=== PATIENT | male | born 1985 | race Caucasian/White ===

== ENCOUNTER 2019-07-22 15:34 | Inpatient (IN) | payer OTHER ==
[~2019-07-22] VITALS: Ht 182.9 cm; Wt 79.0 kg
--- NOTE | 2019-07-22 16:03 | NUR ---
PATIENT MEETS [facility]. CINA=18. PATIENT WANTS TO FOLLOW UP WITH [facility] FOR OUTPATIENT TREATMENT. ROZ BROTHERS B.A. COUNTERSINKER
[2019-07-22 16:15] VITALS: BP 137/90
--- NOTE | 2019-07-22 16:15 | NUR ---
A 33, admitted to 5E, under the services of IGNACIO Gómez DO with a diagnosis of OPIATE WITHDRAWL. Chief complaint is NEED OF DETOX. Patient arrived via from [place]. Monitor applied. Initial assessment completed. Vital signs taken and recorded. IGNACIO GÓMEZ DO notified of admission to the unit. Orders received. See assessment for past medical history, medications and allergies. Patient and/or family oriented to unit. [address] visitation policy reviewed. Clothing/patient valuable form completed. CARISSA RIBEIRO
[2019-07-22 16:40] LABS: BASO # 0.1 10*3/uL (0.0-0.1); BASO % 0.4 % (0.0-1.0); EOS # 0.2 10*3/uL (0.0-0.4); EOS % 1.5 % (1.0-4.0); HEMATOCRIT 45.4 % (42.0-52.0); HEMOGLOBIN 14.8 g/dl (14.0-18.0); LYMPH # 2.4 10*3/uL (1.3-4.4); LYMPH % 17.5 % (27.0-41.0); MEAN CELL VOLUME 88.8 fl (80.0-94.0); MEAN CORPUSCULAR HGB CONC 32.6 g/dl (33.0-37.0); MEAN PLATELET VOLUME 10.2 fl (9.6-12.3); MONO # 1.1 10*3/uL (0.1-1.0); MONO % 8.2 % (3.0-9.0); NEUT # 9.9 10*3/uL (2.3-7.9); NEUT % 72.2 % (47.0-73.0); PLATELET COUNT AUTOMATED 272 10*3/uL (130-400); RED BLOOD COUNT 5.11 10*6/uL (4.50-5.90); WHITE BLOOD COUNT 13.8 10*3/uL (4.8-10.8)
[2019-07-22 16:56] LABS: ALBUMIN 4.5 gm/dl (3.1-4.5); ALKALINE PHOSPHATASE 128 U/L (45-117); BUN 13 mg/dl (7-24); CHLORIDE 105 mmol/L (98-107); CREATININE 1.06 mg/dL (0.70-1.30); POTASSIUM 3.5 mmol/L (3.5-5.1); SGOT/AST 7 IU/L (3-35); SGPT/ALT 21 U/L (12-78); SODIUM 140 mmol/L (136-145); TOTAL PROTEIN 8.3 gm/dL (6.4-8.2)
[2019-07-22 16:58] LABS: ETHYL ALCOHOL < 3.0 mg/dl (<3)
--- NOTE | 2019-07-22 19:23 | NUR ---
MEDICATED WITH PO VISTARIL, REQUIP, MOTRIN AND ROBAXIN FOR C/O ANXIETY, RESTLESS LEGS, ACHES AND CRAMPING.
[2019-07-22 20:00] VITALS: BP 135/82
[2019-07-22 20:44] LABS: BILIRUBIN NEGATIVE (NEGATIVE); BLOOD NEGATIVE (NEGATIVE); CLARITY CLEAR (CLEAR); COLOR YELLOW (YELLOW); GLUCOSE NEGATIVE (NEGATIVE); KETONE TRACE (NEGATIVE); LEUKO ESTERASE NEGATIVE (NEGATIVE); NITRITE NEGATIVE (NEGATIVE); PH 6.5 (5.0-9.0)
[2019-07-22 20:53] LABS: URINE AMPHETAMINES < 1000 (1000ng/ml); URINE BARBITURATES < 200 (200ng/ml); URINE BENZODIAZEPINES > 200 (200ng/ml); URINE CANNABINOIDS (THC) < 50 (50ng/ml); URINE COCAINE < 300 (300ng/ml); URINE METHADONE < 300 (300ng/ml); URINE OPIATES < 300 (300ng/ml)
[2019-07-22 20:55] LABS: URINE PHENCYCLIDINE < 25 (25ng/ml)
[2019-07-22 21:01] LABS: BACTERIA TRACE; EPITHELIAL CELLS 0-2; WBC 0-2 wbc/hpf (0-5)
--- NOTE | 2019-07-22 21:31 | NUR ---
PATIENT MEDICATED WITH TRAZADONE. WILL CHECK EFFECTIVENESS. WILL CONTINUE TO MONITOR.
[2019-07-23] VITALS: BP 128/74
[2019-07-23 08:00] VITALS: BP 131/86
--- NOTE | 2019-07-23 08:47 | NUR ---
PT MEDICATED WITH PO VISTARIL & ROBAXIN PER PRN ORDER FOR COMPLAINTS OF AGITATION AND MUSCLE CRAMPING IN LEGS. WILL MONITOR FOR EFFECTIVENES.
--- NOTE | 2019-07-23 10:00 | NUR ---
PER PATIENT, PRN MEDICATION HAS BEEN EFFECTIVE. NO FURTHER COMPLAINTS AT THIS TIME.
[2019-07-23 12:00] VITALS: BP 153/76
[2019-07-23 16:00] VITALS: BP 112/69
--- NOTE | 2019-07-23 16:45 | NUR ---
PT MEDICATED WITH VISTARIL & ROBAXIN AT THIS TIME FOR COMPLAINTS OF AGITATION & MUSCLE ACHES IN LEGS. WILL MONITOR FOR EFFECTIVENESS.
--- NOTE | 2019-07-23 17:56 | NUR ---
PT MUCH MORE RELAXED AT THIS TIME, DENIES NEEDS.
[2019-07-23 20:00] VITALS: BP 124/83
--- NOTE | 2019-07-23 23:28 | NUR ---
PATIENT MEDICATED WITH TRAZODONE FOR C/O INSOMNIA. WILL MONITOR
--- NOTE | 2019-07-23 23:31 | NUR ---
PATIENT MEDICATED WITH VISTARIL FOR C/O ANXIETY. WILL MONITOR
[2019-07-24] VITALS: BP 132/81
--- NOTE | 2019-07-24 00:28 | NUR ---
TRAZODONE AND VISTARIL EFFECITVE
[2019-07-24 08:00] VITALS: BP 119/70
--- NOTE | 2019-07-24 10:10 | NUR ---
PATIENT LEAVING AGAINST MEDICAL ADVICE AT THIS TIME DUE TO [employer]ER ISSUES. PT IS GOING TO [facility] TOMORROW PLANNED. NOTIFIED & SHIFT DIRECTOR ESTEBAN. AMBULATORY OFF FLOOR.
== END 2019-07-24 10:10 | disposition left against medical advice (07) | DRG 894 ==
LOC: 5E 15:34
PROVIDERS: Student in an Organized Health Care Education/Training Program; ADMIT Internal Medicine
DX: F11.23 Opioid dependence with withdrawal (principal); R65.10 Systemic inflammatory response syndrome (SIRS) of non-infectious origin without acute organ dysfunction; F41.9 Anxiety disorder, unspecified; F17.210 Nicotine dependence, cigarettes, uncomplicated; D72.829 Elevated white blood cell count, unspecified; I10 Essential (primary) hypertension; Z53.29 Procedure and treatment not carried out because of patient's decision for other reasons; Z71.6 Tobacco abuse counseling; Z82.3 Family history of stroke

== ENCOUNTER 2020-02-13 14:24 | Inpatient (IN) | payer OTHER ==
[~2020-02-13] VITALS: Ht 182.9 cm; Wt 82.1 kg
[2020-02-13 15:20] VITALS: BP 122/73
[2020-02-13 15:46] LABS: BASO % 0.4 % (0.0-1.0); EOS # 0.4 10*3/uL (0.0-0.4); EOS % 3.9 % (1.0-4.0); HEMATOCRIT 43.2 % (42.0-52.0); LYMPH # 2.5 10*3/uL (1.3-4.4); LYMPH % 27.8 % (27.0-41.0); MEAN CELL VOLUME 86.7 fl (80.0-94.0); MEAN CORPUSCULAR HGB 28.7 pg (27.0-31.0); MEAN CORPUSCULAR HGB CONC 33.1 g/dl (33.0-37.0); MEAN PLATELET VOLUME 10.1 fl (9.6-12.3); MONO # 0.9 10*3/uL (0.1-1.0); MONO % 9.6 % (3.0-9.0); NEUT # 5.2 10*3/uL (2.3-7.9); NEUT % 58.1 % (47.0-73.0); PLATELET COUNT AUTOMATED 216 10*3/uL (130-400); RED BLOOD COUNT 4.98 10*6/uL (4.50-5.90); RED CELL DISTRI WIDTH 13.2 % (0-14.5); WHITE BLOOD COUNT 8.9 10*3/uL (4.8-10.8)
[2020-02-13 16:08] LABS: ALKALINE PHOSPHATASE 121 U/L (45-117); BUN 8 mg/dl (7-24); CHLORIDE 102 mmol/L (98-107); POTASSIUM 3.5 mmol/L (3.5-5.1); SGOT/AST 26 IU/L (3-35); SGPT/ALT 49 U/L (12-78); SODIUM 136 mmol/L (136-145); TOTAL PROTEIN 7.6 gm/dL (6.4-8.2)
[2020-02-13 16:12] LABS: ETHYL ALCOHOL < 3.0 mg/dl (<3)
[2020-02-13 16:44] LABS: COLOR YELLOW (YELLOW)
[2020-02-13 16:45] LABS: BILIRUBIN NEGATIVE (NEGATIVE); BLOOD NEGATIVE (NEGATIVE); CLARITY CLEAR (CLEAR); GLUCOSE NEGATIVE (NEGATIVE); KETONE NEGATIVE (NEGATIVE); NITRITE NEGATIVE (NEGATIVE); UROBILINOGEN 0.2 E.U./dl (0.2-1.0)
[2020-02-13 16:46] LABS: LEUKO ESTERASE NEGATIVE (NEGATIVE)
[2020-02-13 16:52] LABS: BACTERIA TRACE; EPITHELIAL CELLS 0-2; RBC 0-2 rbc/hpf (0-2); WBC 0-2 wbc/hpf (0-5)
[2020-02-13 20:00] VITALS: BP 120/87
[2020-02-14] VITALS: BP 109/67
[2020-02-14 08:00] VITALS: BP 115/57
[2020-02-14 12:00] VITALS: BP 118/76
== END 2020-02-14 13:58 | disposition other institution (70) | DRG 894 ==
LOC: 5E 14:24
PROVIDERS: Registered Nurse; ADMIT Student in an Organized Health Care Education/Training Program
DX: F11.23 Opioid dependence with withdrawal (principal); F17.210 Nicotine dependence, cigarettes, uncomplicated; F41.9 Anxiety disorder, unspecified; F19.90 Other psychoactive substance use, unspecified, uncomplicated; Z71.6 Tobacco abuse counseling; Z82.3 Family history of stroke

== ENCOUNTER 2020-04-11 11:10 | Inpatient (IN) | payer OTHER ==
[~2020-04-11] VITALS: Ht 182.9 cm; Wt 78.7 kg
[2020-04-11 12:30] VITALS: BP 134/78
--- NOTE | 2020-04-11 12:50 | NUR ---
Notified Gena George of pt complaints of itching to foot. States he stayed with someone last night who had a dog that had fleas.
--- NOTE | 2020-04-11 13:09 | NUR ---
PATIENT MEETS [facility]. CINA=17. PATIENT IS WANTING TO FOLLOW UP WITH [facility] FOR HIS AFTERCARE PLAN. Leroy FERNANDES
[2020-04-11 13:40] LABS: BASO % 0.3 % (0.0-1.0); EOS # 0.3 10*3/uL (0.0-0.4); HEMATOCRIT 45.3 % (42.0-52.0); LYMPH # 2.3 10*3/uL (1.3-4.4); MEAN CELL VOLUME 88.5 fl (80.0-94.0); MEAN CORPUSCULAR HGB 27.9 pg (27.0-31.0); MEAN CORPUSCULAR HGB CONC 31.6 g/dl (33.0-37.0); MEAN PLATELET VOLUME 10.4 fl (9.6-12.3); MONO # 1.1 10*3/uL (0.1-1.0); MONO % 7.6 % (3.0-9.0); NEUT # 10.6 10*3/uL (2.3-7.9); NEUT % 73.8 % (47.0-73.0); PLATELET COUNT AUTOMATED 246 10*3/uL (130-400); RED BLOOD COUNT 5.12 10*6/uL (4.50-5.90); RED CELL DISTRI WIDTH 13.4 % (0-14.5); WHITE BLOOD COUNT 14.3 10*3/uL (4.8-10.8)
[2020-04-11 13:55] LABS: ALBUMIN 4.1 gm/dl (3.1-4.5); ALKALINE PHOSPHATASE 127 U/L (45-117); BUN 8 mg/dl (7-24); CHLORIDE 107 mmol/L (98-107); CREATININE 0.81 mg/dL (0.70-1.30); POTASSIUM 4.1 mmol/L (3.5-5.1); SGOT/AST 6 IU/L (3-35); SGPT/ALT 23 U/L (12-78); SODIUM 138 mmol/L (136-145)
[2020-04-11 14:02] LABS: ETHYL ALCOHOL < 3.0 mg/dl (<3)
--- NOTE | 2020-04-11 15:51 | NUR ---
Medicated with motrin and robaxin at this time per prn order for complaints of muscles aches and restless legs. Pt declined requip states he wants to take it just before going to sleep this evening.
[2020-04-11 16:00] VITALS: BP 139/87
--- NOTE | 2020-04-11 19:52 | NUR ---
24 HR chart check completed.
[2020-04-11 20:00] VITALS: BP 132/78
--- NOTE | 2020-04-11 20:30 | NUR ---
SLEEPING. NO DISTRESS NOTED. RESPIRATIONS EASY. VSS. CALL LIGHT WITHIN REACH
[2020-04-11 20:46] LABS: BILIRUBIN 1+ (Negative); BLOOD Negative (Negative); CLARITY Turbid (Clear); COLOR Dark Yellow (Yellow); GLUCOSE Negative (Negative); KETONE Trace (Negative); LEUKO ESTERASE Trace (Negative); NITRITE Negative (Negative); PH 5.5 (4.5-8.0); SPECIFIC GRAVITY >= 1.030 (1.001-1.030)
[2020-04-11 21:04] LABS: URINE AMPHETAMINES > 1000 (1000ng/ml); URINE BARBITURATES < 200 (200ng/ml); URINE BENZODIAZEPINES < 200 (200ng/ml); URINE CANNABINOIDS (THC) < 50 (50ng/ml); URINE COCAINE < 300 (300ng/ml); URINE METHADONE < 300 (300ng/ml); URINE OPIATES > 300 (300ng/ml)
[2020-04-11 21:05] LABS: URINE PHENCYCLIDINE < 25 (25ng/ml)
[2020-04-11 21:16] LABS: CALCIUM OXALATE CRYSTALS 1+
[2020-04-11 21:18] LABS: BACTERIA TRACE; RBC 0-2 rbc/hpf (0-2); WBC 0-2 wbc/hpf (0-5)
--- NOTE | 2020-04-11 21:26 | NUR ---
Patient displaying withdrawal symptoms, including: irritability, anxiousness, restlessness and agitation. Scheduled/PRN medications provided, SEE EMAR. Will continue to monitor medication effectiveness.
--- NOTE | 2020-04-11 22:00 | NUR ---
Patient resting. Responding to scheduled medications with fewer complaints of pain and anxiety.
[2020-04-12] VITALS: BP 131/85
--- NOTE | 2020-04-12 | NUR ---
Patient resting. Responding to scheduled medications with fewer complaints of pain and anxiety.
--- NOTE | 2020-04-12 06:00 | NUR ---
Patient resting. Responding to scheduled medications with fewer complaints of pain and anxiety.
[2020-04-12 08:00] VITALS: BP 148/86
--- NOTE | 2020-04-12 08:45 | NUR ---
MEDICATED WITH REQUIP ROBAXIN AND VISTARIL PER ORDERS AND REQUEST.
--- NOTE | 2020-04-12 09:30 | NUR ---
ZBIGNIEW MAYBERRY HELPED.
[2020-04-12 12:00] VITALS: BP 145/80
--- NOTE | 2020-04-12 14:19 | NUR ---
DR. WEAVER AND REPLANTER AWARE OF PATIENT SIGNING AMA.
== END 2020-04-12 14:18 | disposition left against medical advice (07) | DRG 894 ==
LOC: 4E 11:10
PROVIDERS: Registered Nurse; ADMIT Family Medicine; ATTEND Family Medicine
DX: F11.23 Opioid dependence with withdrawal (principal); F41.9 Anxiety disorder, unspecified; D72.829 Elevated white blood cell count, unspecified; F15.10 Other stimulant abuse, uncomplicated; F17.200 Nicotine dependence, unspecified, uncomplicated; Z53.29 Procedure and treatment not carried out because of patient's decision for other reasons; Z82.3 Family history of stroke; Z82.49 Family history of ischemic heart disease and other diseases of the circulatory system; Z71.6 Tobacco abuse counseling; Z79.899 Other long term (current) drug therapy